=== PATIENT | male | born 2005 | race African-American/Black ===

== ENCOUNTER 2025-02-19 10:51 | Emergency (ER) | payer MEDICAID, OTHER ==
[~2025-02-19] VITALS: Ht 172.7 cm; Wt 83.0 kg
[2025-02-19 10:53] VITALS: O2SAT 100
[2025-02-19 11:00] VITALS: BP 116/78; PULSE 66; RESP 16; TEMP 36.5; O2SAT 99
== END 2025-02-19 12:12 | disposition home or self-care (01) ==
LOC: ER 10:51
DX: Z00.00 Encounter for general adult medical examination without abnormal findings (principal); Z59.00 Homelessness unspecified
CPT/HCPCS: 99282